=== PATIENT | female | born 1985 | race Two or more races ===

== ENCOUNTER 2018-06-24 20:06 | Emergency (ER) | payer BC, OTHER ==
[~2018-06-24] VITALS: Ht 157.5 cm; Wt 55.4 kg
[2018-06-24 20:09] VITALS: Ht 157.5 cm; Wt 55.4 kg
[2018-06-24 23:24] VITALS: BP 108/69; PULSE 89; RESP 18
--- NOTE | 2018-06-25 07:02 | ERD ---
ER Documentation Chief Complaint Chief Complaint DIZZINESS, POSS SYNCOPE [id number] AGO, WITH N/V HPI 32-year-old female presents for dizziness and syncope a few hours ago. He states that she was standing up from the couch and felt dizzy. She subsequently sat down on the couch and passed out. She denies any head injury. Patient denies any chest pain or shortness of breath prior to syncope. Patient has been having some mild abdominal pain. Pain is noted to be in the periumbilical area. Rated 5 out of 10. Patient has been having some nausea also but she denies any vomiting. Patient is eating and drinking normally. States that her last menstrual period was around mid April. She does not recall having a period in May. No other complaints. ROS All systems reviewed and are negative except as per history of present illness. PMhx/Soc Hx Alcohol Use: No Hx Substance Use: No Hx Tobacco Use: No Smoking Status: Never smoker Physical Exam Vitals ital Signs Date Temp Pulse Resp B/P (MAP) Pulse Ox O2 O2 Flow FiO2 Time Delivery Rate 06/24/18 97.9 89 18 108/69 100 Room Air 23:24 (82) 06/24/18 98.8 89 19 111/63 98 20:09 (79) Physical Exam Const: No acute distress Head: Atraumatic Eyes: Normal Conjunctiva ENT: Normal External Ears, Nose and Mouth. Neck: Full range of motion. No meningismus. Resp: Clear to auscultation bilaterally Cardio: Regular rate and rhythm, no murmurs Abd: Soft, non tender, non distended. Normal bowel sounds Skin: No petechiae or rashes Back: No midline or flank tenderness Ext: No cyanosis, or edema Neur: Awake and alert Psych: Normal Mood and Affect Results 24 hrs Laboratory Tests Test 06/24/18 22:33 06/24/18 22:34 06/24/18 22:35 Urine Color STRAW Urine Clarity CLEAR Urine pH 6.0 Urine Specific [place] 1.010 Urine Ketones TRACE mg/dL Urine Nitrite NEGATIVE mg/dL Urine Bilirubin NEGATIVE mg/dL Urine Urobilinogen NEGATIVE mg/dL Urine Leukocyte Esterase NEGATIVE Sruthi/ul Urine Hemoglobin NEGATIVE mg/dL Urine Glucose NEGATIVE mg/dL Urine Total Protein NEGATIVE mg/dl White Blood Count 12.5 10^3/ul Red Blood Count 4.26 10^6/ul Hemoglobin 13.1 g/dl Hematocrit 39.1 % Mean Corpuscular Volume 91.8 fl Mean Corpuscular Hemoglobin 30.8 pg Mean Corpuscular 33.5 g/dl Hemoglobin Concent Red Cell Distribution Width 12.4 % Platelet Count 232 10^3/UL Mean Platelet Volume 10.4 fl Immature Granulocytes % 0.300 % Neutrophils % 74.9 % Lymphocytes % 19.0 % Monocytes % 5.0 % Eosinophils % 0.5 % Basophils % 0.3 % Nucleated Red Blood Cells % 0.0 /100WBC Immature Granulocytes # 0.040 10^3/ul Neutrophils # 9.4 10^3/ul Lymphocytes # 2.4 10^3/ul Monocytes # 0.6 10^3/ul Eosinophils # 0.1 10^3/ul Basophils # 0.0 10^3/ul Nucleated Red Blood Cells # 0.0 10^3/ul Sodium Level 136 mmol/L Potassium Level 3.5 mmol/L Chloride Level 100 mmol/L Carbon Dioxide Level 25 mmol/L Anion Gap 11 Blood Urea Nitrogen 9 mg/dl Creatinine 0.54 mg/dl Est Glomerular Filtrat > 60 mL/min Rate mL/min Glucose Level 90 mg/dl Calcium Level 10.0 mg/dl Total Bilirubin 0.3 mg/dl Direct Bilirubin 0.00 mg/dl Indirect Bilirubin 0.3 mg/dl Aspartate Amino 23 IU/L Transf (AST/SGOT) Alanine 15 IU/L Aminotransferase (ALT/SGPT) Alkaline Phosphatase 42 IU/L Total Protein 8.0 g/dl Albumin 4.8 g/dl Globulin 3.20 g/dl Albumin/Globulin Ratio 1.50 POC Beta HCG, Qualitative POSITIVE Procedures/MDM Medical Decision Making: Differential diagnosis includes but not limited to dehydration, vasovagal syncope, cardiac etiology. Patient appeared well on physical exam. There is low suspicion for cardiac etiology given the patient has no risk factors. CBC showed no anemia, there was mildly elevated WBC likely secondary to stress reaction. CMP showed normal electrolyte, normal renal and liver function. UA was negative for infection. Urine test was positive. Patient advised to follow-up with [facility]. Patient advised to start taking vitamins, advised to stay hydrated. Patient advised to follow up with PCP in 1-2 days. Patient advised to return to ED for new or worsening symptoms. Patient stable on discharge from the ED. Disclaimer: Inadvertent spelling and grammatical errors are likely due to EHR/dictation software use and do not reflect on the overall quality of patient care. Also, please note that the electronic time recorded on this note does not necessarily reflect the actual time of the patient encounter. Departure Diagnosis: Primary Impression: Condition: Fair Patient Instructions: HCG (Urine) Referrals: [facility] YOU HAVE RECEIVED A MEDICAL SCREENING EXAM AND THE RESULTS INDICATE THAT YOU DO NOT HAVE A CONDITION THAT REQUIRES URGENT TREATMENT IN THE EMERGENCY DEPARTMENT. FURTHER EVALUATION AND TREATMENT OF YOUR CONDITION CAN WAIT UNTIL YOU ARE SEEN IN YOUR DOCTORS OFFICE WITHIN THE NEXT 1-2 DAYS. IT IS YOUR RESPONSIBILITY TO MAKE AN APPOINTMENT FOR FOLOW-UP CARE. IF YOU HAVE A PRIMARY DOCTOR --you should call your primary doctor and schedule an appointment IF YOU DO NOT HAVE A PRIMARY DOCTOR YOU CAN CALL OUR PHYSICIAN REFERRAL HOTLINE AT IF YOU CAN NOT AFFORD TO SEE A PHYSICIAN YOU CAN CHOSE FROM THE FOLLOWING [facility] [address] [facility]. [facility] [address] [facility]. [facility] [address] [facility]. [facility] [address] [facility] [facility]. [facility] [phone] [facility]. [facility]. [address] [facility] [place] [address] [facility] [address] [place], [place] [phone] OFFICE FAX [place] [address] [place], [place] [phone] [address] [place] [address] [place], [place] [phone] [address] [place] [address] [facility], [address], [facility] [address] [address] [address] [facility], [place], [place] [phone] [facility] [address] [place], [place] [id number] [address] [facility] [address] - [address] [facility] [facility] [phone] [place], [place] [address] [facility]. [address], [facility] [address] [address] [facility] [address] [place], [place] [phone] Additional Instructions: Call your primary care doctor TOMORROW for an appointment during the next 1-2 days.See the doctor sooner or return here if your condition worsens before your appointment time. KIN SCHMIDT DO Jun 25, 2018 07:02
== END 2018-06-24 23:25 | disposition home or self-care (01) ==
LOC: FTE 20:06
DX: Z33.1 Pregnant state, incidental (principal)
CPT/HCPCS: 36415; 80053; 81003; 81025; 85025; 99283

== ENCOUNTER 2018-08-06 05:47 | Emergency (ER) | payer BC ==
[~2018-08-06] VITALS: Wt 54.5 kg
[2018-08-06 05:50] VITALS: Wt 54.5 kg
[2018-08-06] MEDS ORDERED: ACETAMINOPHEN 325 MG TAB PO STA (06:16)
[2018-08-06] MEDS ORDERED: SOD CHLORIDE 0.9% 1,000 ML IV ONE (06:24)
--- NOTE | 2018-08-06 08:27 | ERD ---
ER Documentation Chief Complaint Chief Complaint c/o ap and cramping +vaginal bleed. 13 weeks . see note HPI This 33-year-old female presents with pelvic pain and cramping since last night. She had some clear fluid and then some blood. She has continued cramping and mild spotting. She is approximately 13 weeks by dates. She is a G5 para 2. Her OB is Dr. John Stinsonst. ROS All systems reviewed and are negative except as per history of present illness. Allergies Allergies: Coded Allergies: No Known Drug Allergy (Verified Allergy, Unknown, 08/06/18) PMhx/Soc Medical and Surgical Hx: pt denies Medical Hx, pt denies Surgical Hx Hx Alcohol Use: No Hx Substance Use: No Hx Tobacco Use: No Smoking Status: Never smoker FmHx Family History: No diabetes, No coronary disease, No other Physical Exam Vitals Vital Signs Date Temp Pulse Resp B/P (MAP) Pulse Ox O2 O2 Flow FiO2 Time Delivery Rate 08/06/18 98.6 119 22 136/78 99 05:50 (97) Physical Exam Const: No acute distress Head: Atraumatic Eyes: Normal Conjunctiva ENT: Normal External Ears, Nose and Mouth. Neck: Full range of motion. No meningismus. Resp: Clear to auscultation bilaterally Cardio: Regular rate and rhythm, no murmurs Abd: Soft, mild tender suprapubic area. No tenderness McBurney's point no Avalos sign., non distended. Normal bowel sounds Skin: No petechiae or rashes Back: No midline or flank tenderness Ext: No cyanosis, or edema Neur: Awake and alert Psych: Normal Mood and Affect Result Diagram: 08/06/18 0650 Results 24 hrs Laboratory Tests Test 08/06/18 06:50 White Blood Count 13.4 10^3/ul Red Blood Count 4.18 10^6/ul Hemoglobin 13.0 g/dl Hematocrit 38.1 % Mean Corpuscular Volume 91.1 fl Mean Corpuscular Hemoglobin 31.1 pg Mean Corpuscular Hemoglobin Concent 34.1 g/dl Red Cell Distribution Width 12.5 % Platelet Count 192 10^3/UL Mean Platelet Volume 10.3 fl Immature Granulocytes % 0.600 % Neutrophils % 81.3 % Lymphocytes % 10.5 % Monocytes % 7.0 % Eosinophils % 0.3 % Basophils % 0.3 % Nucleated Red Blood Cells % 0.0 /100WBC Immature Granulocytes # 0.080 10^3/ul Neutrophils # 10.9 10^3/ul Lymphocytes # 1.4 10^3/ul Monocytes # 0.9 10^3/ul Eosinophils # 0.0 10^3/ul Basophils # 0.0 10^3/ul Nucleated Red Blood Cells # 0.0 10^3/ul Urine Color RED Urine Clarity CLOUDY Urine pH 6.0 Urine Specific [place] 1.023 Urine Ketones NEGATIVE mg/dL Urine Nitrite NEGATIVE mg/dL Urine Bilirubin NEGATIVE mg/dL Urine Urobilinogen NEGATIVE mg/dL Urine Leukocyte Esterase NEGATIVE Sruthi/ul Urine Microscopic RBC > 182 /HPF Urine Microscopic WBC > 182 /HPF Urine Squamous Epithelial Cells FEW /HPF Urine Bacteria MODERATE /HPF Urine Mucus MODERATE /HPF Urine Yeast (Budding) FEW /HPF Urine Hemoglobin 3+ mg/dL Urine Glucose NEGATIVE mg/dL Urine Total Protein 2+ mg/dl Beta HCG, Quantitative 27595.0 mIU/ml Current Medications Medications Dose Sig/Emmanuel Start Time Status Last (Trade) Ordered Route PRN Stop Time Admin Dose Reason Admin 650 mg ONCE STAT 08/06/18 DC 08/06/18 Acetaminophen PO 06:16 06:44 (Tylenol 08/06/18 06:18 Tab) Sodium 1,000 ml @ Q0M ONCE 08/06/18 DC 08/06/18 Chloride 0 mls/hr IV 06:24 06:45 08/06/18 06:25 Procedures/MDM Patient presents with vaginal bleeding approximately 13-week by dates. Pelvic ultrasound shows approximately 11-week 6-day with hematoma near the fetus. There are positive heart tones of rate of 117. There is no amniotic fluid. Patient is Rh+. CBC shows no anemia. Minimal leukocytosis consistent with state. 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 Call was placed to labor rest child development consultant who advised watchful waiting. There is no need for antibiotics. Given that there is positive heart tones D&C is not currently indicated. I discussed the case with patient's OB Dr. Lopez who recommended watchful waiting as well as sometimes the fluid can reaccumulate the will survive. Patient does have an appointment this morning at her OBs office and is advised to go directly there for further evaluation and treatment and presumed observation and return precautions. She has no signs or symptoms of active hemorrhaging, nose otherwise well-appearing. Her cramping resolved after passage of the blood clot. There is no signs or symptoms do not suggest appendicitis, surgical abdomen, additional emergent causes of presenting complaints. No evidence of ectopic . Departure Diagnosis: Primary Impression: Threatened in first trimester Condition: Stable Patient Instructions: Vaginal Bleed in Additional Instructions: Suspect early miscarriage although there is still heart tones. See OB provider as discussed today. Recheck otherwise for worsening bleeding, fevers, new or worsening symptoms. JULES ORELLANA MD Aug 06, 2018 08:27
[2018-08-06 08:39] VITALS: BP 103/63; PULSE 87; RESP 18
== END 2018-08-06 08:39 | disposition home or self-care (01) ==
LOC: FTE 05:47
DX: O20.0 Threatened abortion (principal); R10.2 Pelvic and perineal pain; Z3A.11 11 weeks gestation of pregnancy
CPT/HCPCS: 36415; 76801; 81001; 84702; 85025; 86900; 86901; 99284; J7030